=== PATIENT | female | born 1970 | race Caucasian/White ===

== ENCOUNTER 2016-08-31 15:50 | Emergency (ER) | payer OTHER ==
[~2016-08-31] VITALS: Ht 162.6 cm; Wt 58.5 kg
[2016-08-31 15:51] VITALS: BP 133/76
[2016-08-31] MEDS ORDERED: HYDROCODONE/APAP 5/325MG 1 EACH TABLET ONE (16:24)
[2016-08-31] MEDS ORDERED: ONDANSETRON 4 MG TAB.RAPDIS ONE (16:24)
[2016-08-31] MEDS ORDERED: HYDROCODONE/APAP 5/325MG 1 EACH TABLET PO ONE (16:30)
[2016-08-31] MEDS ORDERED: ONDANSETRON 4 MG TAB.RAPDIS PO ONE (16:30)
== END 2016-08-31 19:09 | disposition home or self-care (01) ==
LOC: ER 15:51
DX: M25.512 Pain in left shoulder (principal); M79.661 Pain in right lower leg; M25.571 Pain in right ankle and joints of right foot; Z88.5 Allergy status to narcotic agent; V43.52XA Car driver injured in collision with other type car in traffic accident, initial encounter; Y93.89 Activity, other specified; Y92.89 Other specified places as the place of occurrence of the external cause; Y99.9 Unspecified external cause status
CPT/HCPCS: 73030; 73590; 84703; 99285; A4606; Q0162; Z7610